=== PATIENT | female | born 1995 | race Asian ===

== ENCOUNTER 2025-08-31 17:14 | Emergency (ER) | payer BC ==
[~2025-08-31] VITALS: Ht 157.5 cm; Wt 66.0 kg
[2025-08-31 17:19] VITALS: O2SAT 100
[2025-08-31] MEDS: ONDANSETRON HCL 4MG/2ML INJ IV ONE (20:26)
[2025-08-31] MEDS: SODIUM CHLORIDE 0.9% 1,000 ML IV ONE (20:26)
[2025-08-31 20:33] LABS: BASOPHILS % 0.5 % (0.0-2.0); EOSINOPHILS % 0.2 % (0.0-5.0); HEMATOCRIT. 40.4 % (36.0-48.0); HEMOGLOBIN. 13.5 g/dL (12.0-16.0); LYMPHOCYTES % 8.8 % (20.0-50.0); MEAN PLATELET VOLUME 8.0 fl (7.4-10.4); MONOCYTES % 4.8 % (2.0-8.0); NEUTROPHILS % 85.7 % (40.0-76.0); PLATELET 352 x1000/uL (130-400); RED BLOOD CELL COUNT 4.30 mill/uL (4.2-5.4); RED CELL DISTRIBUTION WIDTH 12.6 % (11.6-14.6)
[2025-08-31 20:43] LABS: CREATININE 0.7 mg/dL (0.6-1.0)
[2025-08-31 20:44] LABS: UREA NITROGEN BLOOD 6 mg/dL (9-23)
[2025-08-31 20:45] LABS: TROPONIN I HIGH SENSITIVITY < 4 ng/L (3.0-34)
[2025-08-31 20:50] LABS: HCG SCREEN NEGATIVE
[2025-08-31 21:46] VITALS: BP 122/75; PULSE 98; RESP 18; TEMP 36.8; O2SAT 99
== END 2025-08-31 21:47 | disposition home or self-care (01) ==
LOC: ER 17:14
DX: R55 Syncope and collapse (principal); R11.0 Nausea; F19.90 Other psychoactive substance use, unspecified, uncomplicated
CPT/HCPCS: 80048; 80320; 84703; 83735; 85025; 84484; 36415; 71045; 93005; 96360; 99285; J7030; Z7610; G0480